=== PATIENT | female | born 1995 | race Caucasian/White ===

== ENCOUNTER 2024-09-22 09:05 | Emergency (ER) | payer OTHER, SELFPAY ==
[2024-09-22 09:07] VITALS: BP 132/86; PULSE 88; RESP 16; TEMP 36.4; O2SAT 95; BMI 29.1
--- NOTE | 2024-09-22 09:19 | PC.NURSE ---
pt states she just got out of a CSS, pt does not have a last dose letter and states her appt is at [facility]. pt here to get suboxone
--- NOTE | 2024-09-22 09:42 | PC.NURSE ---
care team stated that the dosage could be just ordered by the provider or the provider can reach out to bárbara hendrix.
--- NOTE | 2024-09-22 10:05 | ED.GENADULT ---
HPI - General Adult General Chief complaint: General Medical Stated complaint: Needs suboxone Time Seen by Provider: 09/22/24 09:12 Source: patient Mode of arrival: ambulatory Limitations: no limitations History of Present Illness ED Provider: Deepthi Shoemaker NP HPI narrative: Patient is a 29-year-old female with past medical history of opioid use disorder presenting to emergency department requesting Suboxone dosing. She reports that she was recently at [facility], which she was given a prescription for Suboxone 8 mg to take twice daily. She ran out of the medication 2 days ago, and reports that there is issues with her insurance. She is currently staying at [place] [facility]. She has an appointment tomorrow with frederick castanon at 10:30. She is requesting a single dosage here in the emergency department to get her through to the appointment tomorrow. She does not want any prescriptions sent to the pharmacy for dosing later tonight. She denies any recreational drug usage. She offers no physical complaints Related Data Allergies Allergy/AdvReac Type Severity Reaction Status Date / Time ibuprofen Allergy Unknown Verified 09/22/24 09:08 Penicillins Allergy Unknown Verified 09/22/24 09:08 Review of Systems Review of Systems: Yes all other systems are reviewed and are negative PMFSH Past Medical History Attestation statement: The following information was validated with the patient. Source: old records reviewed Social History Social History Advance Directives: No Advance Directives Information Provided: No Do you have a plan to hurt others: No Plan Physical Exam ED Vital Signs: Vital Signs - 24 hr 09/22/24 09:07 Temperature 97.6 F Pulse Rate 88 Respiratory Rate 16 Blood Pressure 132/86 Pulse Oximetry 95 Oxygen Delivery Method Room Air BMI result Body Mass Index 29.1 Appearance: Alert.?Oriented to person, place and time. No acute distress.?Normal affect. Eyes: Pupils equal, round and reactive to light.? ENT: Pharynx normal.?? Neck: Normal inspection.? Neck supple.?? CVS: Heart sounds normal. Normal heart rate and rhythm.? Pulses normal.?? Respiratory: No respiratory distress.? Lung sounds clear to auscultation bilaterally?? Skin: Skin warm and dry.? Normal skin color. Extremities: No lower extremity edema.? Neuro: Moves all extremities spontaneously. Sensation intact bilaterally.Ambulates with normal steady gait. Medical Decision Making Medical Decision Making [facility] Narrative: Patient is a 29-year-old female with past medical history of opioid use disorder presenting to emergency department requesting Suboxone dosage as per HPI. She is well-appearing, nontoxic. Does not appear under the influence of illicit drugs at this time. She denies opioid usage. She does not want a prescription for her Suboxone later tonight. She simply wants a dose here which I feel is reasonable, she will be dosed with Suboxone 8/2 mg film sublingually. No current signs of withdrawal. Stable for discharge Differential Diagnosis Differential Diagnoses: The differential diagnosis associated with the presentation includes (Opioid use disorder, opioid withdrawal) External Record Review External record reviewed: Outpatient record Prescription Management I considered prescription management with: Other (See narrative above) Discharge Plan Discharge Clinical Impression: Opioid use disorder Patient Disposition: Home, Self-Care Instructions: Opioid Use Disorder (ED) Additional Instructions: You received a single dose of Suboxone 8/2 mg sublingual film while in the emergency department today. Please keep your appointment scheduled for tomorrow with [facility] for further treatment Print Language: Faroese
[2024-09-22] MEDS: Buprenorphine/Naloxone 8/2 mg FILM 1 FILM SUBLINGUAL (10:33)
[2024-09-22 10:36] VITALS: BP 128/78; PULSE 82; RESP 16; TEMP 36.8; O2SAT 96
--- NOTE | 2024-09-22 10:36 | PC.NURSE ---
pt medicated per order
== END 2024-09-22 10:37 | disposition home or self-care (01) ==
PROVIDERS: Emergency Provider Emergency Medicine Emergency Medical Services
DX: F11.20 Opioid dependence, uncomplicated (principal)
CPT/HCPCS: 99282; 99283

== ENCOUNTER 2024-09-24 11:18 | Emergency (ER) | payer OTHER, SELFPAY ==
[2024-09-24 11:21] VITALS: BP 123/88; PULSE 76; RESP 20; TEMP 36.3; O2SAT 96; BMI 34.9
--- NOTE | 2024-09-24 11:21 | ED_ITS ---
HPI - General Adult General Chief complaint: General Medical Stated complaint: suboxone withdrawal Time Seen by Provider: 09/24/24 11:31 Source: patient Mode of arrival: ambulatory Limitations: no limitations History of Present Illness ED Provider: Deepthi Shoemaker NP HPI narrative: Patient is a 29-year-old female with past medical history of opioid use disorder presenting to emergency department requesting Suboxone dosing concerned she is withdrawing experiencing sweats and pins and needle sensation. She reports that she was recently at [facility] program in [facility], which she was taking Suboxone 8 mg to take twice daily. She was transferred to [facility] locally. She was seen in the emergency department 09/22/2024 and received a single dose of her Suboxone after having ran out of the medication 2 days prior due to ?insurance issues?. She had an appointment yesterday with frederick cobian, prescription for Suboxone was sent to [facility] pharmacy but due to lack of insurance specific information she has been unable to picker box operator the prescription. Therefore has not been dose since 09/22/2024 in the morning in this ED. Nursing staff have contacted Frederick Cobian and verified that she was not previously dosed very yesterday. Related Data Allergies Allergy/AdvReac Type Severity Reaction Status Date / Time ibuprofen Allergy Unknown Verified 09/24/24 11:23 Penicillins Allergy Unknown Verified 09/24/24 11:23 Review of Systems Review of Systems: Yes all other systems are reviewed and are negative [facility] Past Medical History Attestation statement: The following information was validated with the patient. Source: old records reviewed Social History Social History Advance Directives: No Advance Directives Information Provided: Yes Do you have a plan to hurt others: No Plan Physical Exam ED Vital Signs: Vital Signs - 24 hr 09/24/24 11:21 Temperature 97.4 F Pulse Rate 76 Respiratory Rate 20 Blood Pressure 123/88 Pulse Oximetry 96 Oxygen Delivery Method Room Air BMI result Body Mass Index 34.9 Appearance: Alert.?Oriented to person, place and time. No acute distress.?Normal affect. Eyes: Pupils equal, round and reactive to light.? ENT: Pharynx normal.?? Neck: Normal inspection.? Neck supple.?? CVS: Heart sounds normal. Normal heart rate and rhythm.? Pulses normal.?? Respiratory: No respiratory distress.? Lung sounds clear to auscultation bilaterally?? Abdomen: Soft and non-tender. Normoactive bowel sounds. Skin: Skin warm and dry.? Normal skin color.? Extremities: No lower extremity edema.? Neuro: Moves all extremities spontaneously. Sensation intact bilaterally. No focal neuro deficits. Ambulates with normal steady gait. Course Course Course Narrative: This is a Rapid Medical Examination (RME) performed by Alisa Caban PA-C in [facility]. Full HPI, ROS, assessment and treatment plan per primary provider in the Main ED. 29 yo female here requsting saboxone dose. she was last dosed at [facility] on . She takes 8mg BID. she is typically dosed at [facility]. she states she has a prescription waiting for her at the pharmacy. she has been unable to picker box operator her prescription because they are requesting a BIN number from her in [facility] which she is unable to obtain. reports feeling generally unwell with chills and paresthesias. no nausea. no pain. states she does not know what to do at this point. + well appearing Plan: suboxone dose Reevaluation(s) Reevaluation #1: Nursing staff was able to obtain appropriate information from insurance company contacted patient's pharmacy and provided this information, received word from pharmacy technician inpatient that the claim is pain and patient should have no further difficulty picking up her Suboxone prescription. Time: 12:17 Medical Decision Making Medical Decision Making [facility] Narrative: Patient is a 29-year-old female past medical history of opioid use disorder presenting to emergency department requesting Suboxone dosage as per HPI, she feels as though she is starting to withdrawal she is having intermittent sweats, pins and needle sensation, she denies any recreational drug usage. As per HPI she can not picker box operator her prescription for Suboxone at the pharmacy due to lack of information regarding her health insurance plan. I have contacted the [facility] pharmacy on [address] [facility] personally to determine what information in regards to her insurance is required, I was advised by pharmacy staff that they require a BIN or PCN number in addition to her group ID and member ID for her [facility] insurance. Patient does not have access to more than her group Melly your member ID. Unfortunately she does not have her health insurance card. She asked for assistance from staff at [facility] and they to only have the group and member ID. She did have her appointment at [facility] yesterday, a prescription for her Suboxone was sent to his pharmacy but she was not dosed there. Therefore her last dosing was in the emergency department on 09/22/2024. Differential Diagnosis Differential Diagnoses: The differential diagnosis associated with the presentation includes (Opioid use disorder, opioid withdrawal) External Record Review External record reviewed: Outpatient record Discharge Plan Discharge Clinical Impression: Opioid use disorder Patient Disposition: Home, Self-Care Instructions: Opioid Use Disorder (ED) Additional Instructions: As discussed, our nursing staff here were able to contact your insurance to obtain the appropriate information required by [facility] pharmacy. We then called your [facility] pharmacy on [address] provided this information we spoke with Robi who confirms that the claim is pain in you should have no difficulty speaking up your Suboxone prescription. Referrals: Physician,None [Primary Care Provider] - Print Language: Tuvaluan
--- NOTE | 2024-09-24 12:15 | PC.NURSE ---
spoke with [employer] rx rep Malathi verified pt has active coverage ID: [id number] BIN [id number] PCN: [id number] Grp: [id number]- Spoke with [facility] Pharm[facility] on [address] (Staff:Ricki) [facility] info updated claim is processed and paid. Pt should be ready within the hour.
[2024-09-24] MEDS: Buprenorphine/Naloxone 8/2 mg FILM 1 FILM SUBLINGUAL (12:21)
[2024-09-24 12:36] VITALS: BP 123/88; PULSE 76; RESP 20; TEMP 36.3; O2SAT 96
== END 2024-09-24 12:37 | disposition home or self-care (01) ==
PROVIDERS: Emergency Provider Emergency Medicine
DX: F11.20 Opioid dependence, uncomplicated (principal); F19.10 Other psychoactive substance abuse, uncomplicated; J45.909 Unspecified asthma, uncomplicated; F17.210 Nicotine dependence, cigarettes, uncomplicated
CPT/HCPCS: 99282

== ENCOUNTER 2024-10-11 08:01 | Inpatient (IN) | payer OTHER, SELFPAY ==
[2024-10-11] VITALS (12 sets, daily range): BP systolic 96–130; BP diastolic 46–79; PULSE 71–115; RESP 14–20; TEMP 36–37.9; O2SAT 87–96; BMI 29.6; BMI 35.2
--- NOTE | ~2024-10-11 | XR_ITS ---
EXAMINATION: XR CHEST CLINICAL INFORMATION: Cough, fever, shortness of breath R/O pneumonia COMPARISON: None available. TECHNIQUE: 2 views of the chest were obtained. FINDINGS: The cardiac silhouette is normal. There is mild diffuse bronchial wall thickening. There are no areas of consolidation. There are no pleural effusions or pneumothoraces. The bones and soft tissues are unremarkable for the patient's age. XR/XR chest 2V IMPRESSION: Bronchial wall thickening may be infectious and/or inflammatory in etiology. Electronically signed by: Sveta Olvera MD 10/11/2024 10:10 AM [facility]
--- NOTE | ~2024-10-11 | CT_ITS ---
EXAMINATION: CT ANGIOGRAM CHEST CLINICAL INFORMATION: Shortness of breath. Hypoxia. COMPARISON: None available. TECHNIQUE: Multiple axial images were obtained through the chest after the administration of 65 mL of Omnipaque 350 intravenous contrast. Extensive vascular post-processing including two-dimensional and three-dimensional reformatted images were created and reviewed on an independent workstation. SmartPrep technique. This CT examination was performed using dose optimization techniques as appropriate, variously including the following: *Automated exposure control *Adjustment of mA and/or kV according to patient size (this includes techniques or standardized protocols for targeted exams where dose is matched to indication/reason for exam; i.e. extremities or head) *Use of iterative reconstruction technique DLP: 284 mGy-cm FINDINGS: Limited secondary to inadequate smart prepped technique and patient's breathing motion artifact. No intraluminal filling defects within the main pulmonary artery or its main branches. No aneurysm or dissection, thoracic aorta. There is a subtle pulmonary mosaic pattern. No consolidation, pleural effusion or pneumothorax. No bronchiectasis. No honeycombing. Respiratory where is patent. No lymphadenopathy, mediastinum or pulmonary hilum nor axillary. No pericardial effusion. No gross calcified plaques in the coronary arteries. No acute fracture or listhesis in the axial skeleton. Sternum is intact. The included clavicles and scapula are intact. No gross acute rib fracture.. CT/CT angio chest PE protocol IMPRESSION: No acute pulmonary artery emboli. No aneurysm or dissection, thoracic. Posterior mild interstitial edema versus small airway disease versus small pulmonary artery disease. Fleischner guidelines were followed. Electronically signed by: Dank Garcia MD 10/11/2024 03:26 PM [facility]
[2024-10-11] MEDS: Albuterol Sulfate 5 MG, Albuterol/Iprat 2.5/0.5MG 3 ML 3 ML INHALE (08:24)
--- NOTE | 2024-10-11 08:35 | ED_ITS ---
HPI - URI/Sore Throat General Chief Complaint: Upper Respiratory Symptoms Stated Complaint: SOB 91%RA,COUGH GREEN,DUONEB GIVEN PER EMS Time Seen by Provider: 10/11/24 08:20 Source: patient Limitations: no limitations History of Present Illness ED Provider: Dr. Navid Mann HPI Narrative: 34-year-old female with a history of asthma , psoriasis, opiate use disorder on Suboxone who presents emergency department for evaluation of productive cough, chest pain, shortness of breath, dyspnea on exertion, subjective fever and chills x1 week with symptoms getting worse over the last 24 hours. Patient states that she has been feeling short of breath and has had to use her albuterol inhaler 2 puffs 4 to 6 times a day which is my more than her usual use. She states she was felt hot and cold at home but did not take her temperature. She states she has been having chest pain which is worse with coughing and worse with breathing. She was a cough which is productive of thick, green sputum with no blood in the sputum. Patient states that her symptoms got worse over last 24 hours therefore she came to emergency department for evaluation. Patient occasionally smokes cigarettes but does vape tobacco products. She denies drug use. Related Data Home Medications ?Medication ?Instructions ?Recorded ?Confirmed alprazolam 0.5 mg tablet 0.5 mg BEDTIME 10/11/24 10/11/24 alprazolam 1 mg tablet 1 mg DAILY PRN Anxiety 10/11/24 10/11/24 aripiprazole 15 mg DAILY 10/11/24 10/11/24 buprenorphine 8 mg-naloxone 2 mg 1 film buccal BID 10/11/24 10/11/24 sublingual film (Suboxone) dextroamphetamine-amphetamine 20 20 mg BID 10/11/24 10/11/24 mg tablet gabapentin 800 mg tablet 800 mg PO TID 10/11/24 10/11/24 Allergies Allergy/AdvReac Type Severity Reaction Status Date / Time ibuprofen Allergy Unknown Verified 10/11/24 09:27 Penicillins Allergy Unknown Verified 10/11/24 09:27 Review of Systems 2 Review of Systems: Yes all other systems are reviewed and are negative [facility] Past Medical History [facility] Narrative: Social history: She occasionally smokes cigarettes and does vape tobacco products. She denies alcohol and drug use. Patient is on Suboxone and she states that she was using oxycodone and Vicodin in his not taken opiate in over 7 years. Social History Social History (System 10/11/24 @ 09:27 by Trena London) Advance Directives: No Do you have a plan to hurt others: No Plan Patient : No Physical Exam 2 Vital Signs: Vital Signs: Last Vital Signs Temp 97.3 F 10/11/24 12:46 Pulse 86 10/11/24 15:52 Resp 15 10/11/24 15:52 BP 100/46 L 10/11/24 15:52 Pulse Ox 96 10/11/24 15:52 O2 Del Method Nasal Cannula 10/11/24 15:52 O2 Flow Rate 2 10/11/24 15:52 BMI result Body Mass Index 29.6 Vital signs revealed a low grade temperature of 99.9 degrees F and elevated heart rate of 106 beats per minute. O2 saturation was 91-95% on room air. Exam: General: Awake, alert in no distress Head: Normocephalic, atraumatic EENT: PERRL, Lids normal, sclera normal, conjunctiva normal, nose normal , ears normal, throat without erythema or exudates Neck: Supple, no adenopathy Lung: breath sounds symmetric, diffuse rhonchi and wheezing, no rales. Chest: symmetric movement, nontender Heart: regular rate and rhythm, normal S1, S2 no murmurs or rubs Abdomen: soft, non-tender, nondistended, normal bowel sounds Back: no vertebral tenderness, no CVAT Extremities: no deformities, moves all extremities symmetrically Neuro: Awake, alert, oriented, normal speech, cranial nerves intact, moves all extremities symmetrically Psych: Pleasant, cooperative Medications Administered Discontinued Medications Generic Name Dose Route Start Last Admin Trade Name Madhuri PRN Reason Stop Dose Admin Acetaminophen 975 mg 10/11/24 08:21 10/11/24 08:37 Acetaminophen 325 Mg Tablet PO 10/11/24 08:22 975 mg ONCE ONE Administration Alprazolam 1 mg 10/11/24 14:21 10/11/24 14:29 Alprazolam 0.5 Mg Tablet PO 10/11/24 14:22 1 mg ONCE ONE Administration Buprenorphine/Naloxone 1 film 10/11/24 14:21 10/11/24 14:29 Buprenorphine/Naloxone 8/2 Mg Film SUBLINGUAL 10/11/24 14:22 1 film ONCE ONE Administration Ceftriaxone Sodium 1 gm 10/11/24 13:01 10/11/24 14:30 Ceftriaxone Sodium 1 Gm Vial IVPUSH 10/11/24 13:02 1 gm ONCE ONE Administration Albuterol Sulfate 5 mg/ 0 mg 10/11/24 08:18 10/11/24 08:24 Albuterol/Ipratropium 3 ml INHALE 10/11/24 08:19 7.5 each ONCE ONE Administration Sodium Chloride 1,000 mls @ 999 mls/hr 10/11/24 10:30 10/11/24 12:43 Ns IV 10/11/24 11:30 Infused .Q1H1M VEE Infusion Azithromycin 500 mg/ Sodium 250 mls @ 125 mls/hr 10/11/24 13:01 10/11/24 14:33 Chloride IV 10/11/24 15:00 125 mls/hr ONCE ONE Administration Iohexol 100 ml 10/11/24 14:16 10/11/24 14:16 Iohexol 350 Mg/Ml 100 Ml Infus..Btl IV 10/11/24 14:17 65 ml ONCE ONE Administration Methylprednisolone Sodium Succinate 125 mg 10/11/24 08:44 10/11/24 09:01 Methylprednisolone Sod Succ 125 Mg/2 Ml Vial IVPUSH 10/11/24 08:45 125 mg ONCE ONE Administration Nicotine Polacrilex 2 mg 10/11/24 14:22 10/11/24 14:29 Nicotine Polacrilex 2 Mg Gum BUCCAL 10/11/24 14:23 2 mg ONCE ONE Administration Medical Decision Making Medical Decision Making MDM Narrative: 34-year-old female with a history of asthma, psoriasis, opiate use disorder on Suboxone who presents emergency department for evaluation of productive cough, chest pain, shortness of breath, dyspnea on exertion, subjective fever and chills x1 week with symptoms getting worse over the last 24 hours. Vital signs revealed a low-grade fever of 99.9 degrees F orally, elevated heart rate and O2 saturation between 91 and 95% on room air. Patient is lung exam did reveal diffuse wheezing and rhonchi with no rales. 08:44 Differential diagnosis: ?Includes but is not limited to asthma exacerbation, bronchitis, pneumonia, COVID-19, influenza, RSV, anemia, electrolyte abnormalities Following evaluation was ordered: CBC, CMP, lactic acid, quantitative beta-hCG, VBG, COVID-19, RSV, influenza, chest x-ray two view, bronchodilator protocol Patient was initially treated with the following: Albuterol 7.5 mg IV, Solu- Medrol 125 mg IV and Tylenol 975 mg orally Course: 15:57 My independent interpretation patient's laboratory evaluation: WBC was elevated 16,900 with 91.7% neutrophils and 4.9% lymphocytes. VBG revealed a normal pH of 7.40 and a normal pCO2 of 42. Glucose elevated 128. Quantitative beta-hCG below detectable limits. Urinalysis was negative. Urine tox screen was positive for buprenorphine, amphetamines and benzodiazepines-these medications that she is prescribed. COVID-19, RSV and influenza were negative. The patient had hypoxia with O2 saturations in the 87% range and was placed on oxygen Chest x-ray did not reveal any focal infiltrates but did reveal bronchial thickening. Given her hypoxia and this chest x-ray findings he was concerned that she might have a pulmonary embolism but the CT pulmonary angiogram did not reveal any large PEs which is reassuring. The radiologist did note the following ?Posterior mild interstitial edema versus small airway disease versus pulmonary artery disease ?. Given her hypoxia, bronchitis and asthma exacerbation, the patient will need to be admitted for further treatment. I did discuss the patient's presentation over tiger text with the covering hospitalist, nurse practitioner Kacey Ramirez. Admission/Observation Consideration of admission/observation: Escalation of care including admission/observation considered (Yes) Consult Healthcare Provider Management of the patient was discussed with: Hospitalist Lab Data [facility] Lab Attestation statement: I reviewed the patient's lab results. 10/11/24 10:56 10/11/24 10:56 Labs: Lab Results 10/11/24 10/11/24 10/11/24 Range/Units 10:56 11:02 12:49 WBC 16.9 H (4.8-10.8) X10*3/uL RBC 4.27 (4.20-5.50) X10*6/uL Hgb 12.6 (12.0-16.0) g/dl Hct 37.5 (37.0-47.0) % MCV 87.8 (80.0-98.0) fL MCH 29.5 (27.0-33.0) pg MCHC 33.6 (31.0-35.0) g/dl RDW 12.2 (11.0-16.0) % Plt Count 311 (160-400) X10*3/uL MPV 8.9 L (9.4-12.3) fL Immature Gran % (Auto) 0.5 H (0.0-0.4) % Neut % (Auto) 91.7 H (45-73) % Lymph % (Auto) 4.9 L (20-40) % Lares % (Auto) 2.7 (2-11) % Eos % (Auto) 0.1 (0-4) % Baso % (Auto) 0.1 (0-2) % Lymph # (Auto) 0.8 L (1.2-4.9) X10*3/uL Lares # (Auto) 0.5 (0.1-1.2) X10*3/uL Eos # (Auto) 0.0 (0.0-0.4) X10*3/uL Baso # (Auto) 0.0 (0.0-0.2) X10*3/uL Abs Immat Gran (auto) 0.09 H (0.00-0.03) X10*3/uL Absolute Neuts (auto) 15.5 H (2.0-8.3) x10*3/uL Absolute Nucleated RBC 0.000 (0.0-0.012) X10*3/uL Nucleated RBC % (auto) 0.0 (0.0-0.2) /100WBC Smear Tech's Comments VERIFIED VBG pH 7.40 (7.32-7.43) VBG pCO2 42 mmHg VBG pO2 134 mmHg VBG HCO3 26 (22-26) mmol/L VBG O2 Saturation 100.0 % VBG Base Excess 1.9 mmol/L Sodium 137 (135-145) mmol/L Potassium 3.6 (3.3-5.1) mmol/L Chloride 105 (96-108) mmol/L Carbon Dioxide 27 (22-29) mmol/L Anion Gap 9 L (12-20) BUN 7 L (9-16) mg/dL Creatinine 0.73 (0.5-1.4) mg/dL Estim Creat Clear Calc 120.4 Estimated GFR > 60 Random Glucose 128 H (60-115) mg/dL Lactic Acid 0.8 (0.5-2.0) mmol/L Calcium 8.8 (8.4-10.2) mg/dL Total Bilirubin 0.3 (0.0-1.0) mg/dL AST 16 (5-31) U/L ALT 19 (0-31) U/L Alkaline Phosphatase 51 (39-117) U/L Total Protein 7.4 (6.5-8.0) g/dL Albumin 4.0 (3.5-5.0) g/dL Beta HCG, Quant < 2 mIU/mL Urine Color Yellow Urine Appearance Clear Urine pH 8.0 (5.0-9.0) Ur Specific Kamrar 1.015 (1.005-1.025) Urine Protein Negative (Neg-Trace) mg/dL Urine Glucose (UA) Negative (Negative) mg/dL Urine Ketones Negative (Negative) mg/dL Urine Blood Negative (Negative) Urine Nitrite Negative (Negative) Ur Leukocyte Esterase Negative (Negative) Urine Opiates Screen Not Detected (Not Detect) Ur Buprenorphine Scrn Positive H (Not Detect) ng/mL Ur Oxycodone Screen Not Detected (Not Detect) ng/mL Urine Methadone Screen Not Detected (Not Detect) ng/mL Urine Fentanyl Screen Not Detected (Not Detect) Ur Barbiturates Screen Not Detected (Not Detect) Ur Phencyclidine Scrn Not Detected (Not Detect) Ur Amphetamines Screen POSITIVE H (Not Detect) U Benzodiazepines Scrn POSITIVE H (Not Detect) Urine Cocaine Screen Not Detected (Not Detect) U Marijuana (THC) Screen Not Detected (Not Detect) Influenza Type A (PCR) NEGATIVE (Negative) Influenza Type B (PCR) NEGATIVE (Negative) RSV RNA Qual (PCR) NEGATIVE (Negative) SARS-CoV-2 RNA (RT-PCR) NEGATIVE (Negative) Independent Interpretation I performed an independent interpretation of an: Plain X-Ray Radiology Impression Discussion of test interpretation with radiology: I have reviewed the radiologist's reading. Radiologist Impression: XR chest 2V IMPRESSION: Bronchial wall thickening may be infectious and/or inflammatory in etiology. Electronically signed by: Sveta Olvera MD 10/11/2024 10:[address] angio chest PE protocol IMPRESSION: No acute pulmonary artery emboli. No aneurysm or dissection, thoracic. Posterior mild interstitial edema versus small airway disease versus small pulmonary artery disease. Fleischner guidelines were followed. Electronically signed by: Dank Garcia MD 10/11/2024 03:26 PM [facility] Dictated By: Dank Coleman MD Critical Care Time Critical Care Time Critical Care Time: Yes Total Critical Care Time: 45 Attestation: Critical Care: The patient was critically ill with a high probability of imminent or life threatening deterioration. I spent greater than 30 minutes of discontinuous time evaluating the patient,delivering critical care at the bedside, discussing and evaluating pertinent data with consultants. Critical care time does not include time spent performing separately billable procedures or teaching. Total time spent performing critical care was 45 minutes. Discharge Plan Discharge Patient Disposition: Admitted As Inpatient Prescriptions: No Action dextroamphetamine-amphetamine 20 mg Tablet 20 mg BID buprenorphine-naloxone [Suboxone] 8-2 mg Film 1 film BUCCAL BID gabapentin 800 mg Tablet 800 mg PO TID alprazolam 1 mg Tablet 1 mg DAILY PRN (Reason: Anxiety) alprazolam 0.5 mg Tablet 0.5 mg BEDTIME aripiprazole 15 mg tablet 15 mg DAILY Print Language: French
[2024-10-11] MEDS: Acetaminophen 325 MG TABLET 975 MG PO (08:37)
[2024-10-11] MEDS: methylPREDNISolone Sod Succ 125 MG/2 ML VIAL IVPUSH (09:01)
--- NOTE | 2024-10-11 10:24 | PC.NURSE ---
Patient remain febrile, allergic to ibuprofen, warm and clammy to touch
[2024-10-11] MEDS: 0.9 % Sodium Chloride 1,000 ML 999 ML IV (10:30)
[2024-10-11 11:09] LABS: Basophils Percent Auto 0.1 % (0-2); Eosinophils Percent Auto 0.1 % (0-4); Hematocrit 37.5 % (37.0-47.0); Hemoglobin 12.6 g/dl (12.0-16.0); Imm Gran Abs Auto 0.09 X10*3/uL (0.00-0.03); Imm Gran Pct Auto 0.5 % (0.0-0.4); Lymphocytes Absolute Auto 0.8 X10*3/uL (1.2-4.9); Lymphocytes Percent Auto 4.9 % (20-40); MANUAL DIFF FLAG SCAN; Mean Corpuscular HGB Conc 33.6 g/dl (31.0-35.0); Mean Corpuscular Hemoglobin 29.5 pg (27.0-33.0); Mean Corpuscular Volume 87.8 fL (80.0-98.0); Mean Platelet Volume 8.9 fL (9.4-12.3); Monocytes Absolute Auto 0.5 X10*3/uL (0.1-1.2); Monocytes Percent Auto 2.7 % (2-11); Neutrophils Absolute Auto 15.5 x10*3/uL (2.0-8.3); Neutrophils Percent Auto 91.7 % (45-73); Platelet Count 311 X10*3/uL (160-400); Red Blood Count 4.27 X10*6/uL (4.20-5.50); Red Cell Distribution Width 12.2 % (11.0-16.0); SCAN SMEAR FLAG 1; White Blood Count 16.9 X10*3/uL (4.8-10.8)
[2024-10-11 11:21] LABS: VBG Base Excess 1.9 mmol/L; VBG HCO3 26 mmol/L (22-26); VBG pCO2 42 mmHg; VBG pO2 134 mmHg
[2024-10-11 11:23] LABS: Lactic Acid 0.8 mmol/L (0.5-2.0)
[2024-10-11 11:26] LABS: SLIDE REVIEW VERIFIED
[2024-10-11 11:27] LABS: Venous Blood Gas Refer to POC result
[2024-10-11 11:30] LABS: Alanine Aminotransferase 19 U/L (0-31); Alkaline Phosphatase 51 U/L (39-117); Anion Gap 9 (12-20); Aspartate Amino Transferase 16 U/L (5-31); Bilirubin Total 0.3 mg/dL (0.0-1.0); Blood Urea Nitrogen 7 mg/dL (9-16); Calcium 8.8 mg/dL (8.4-10.2); Carbon Dioxide 27 mmol/L (22-29); Chloride 105 mmol/L (96-108); Creatinine Clr Calc Pharmacy 120.4; Estimated Glomerular Filt Rate > 60; Glucose Random 128 mg/dL (60-115); Potassium 3.6 mmol/L (3.3-5.1); Sodium 137 mmol/L (135-145); Total Protein 7.4 g/dL (6.5-8.0)
[2024-10-11 11:33] LABS: HCG Quantitative < 2 mIU/mL
[2024-10-11 11:46] LABS: Influenza A PCR NEGATIVE (Negative); Influenza B PCR NEGATIVE (Negative); Resp Syncy Virus RNA Qual PCR NEGATIVE (Negative); SARS COV2 PCR INHOUSE NEGATIVE (Negative)
--- NOTE | 2024-10-11 12:42 | PC.NURSE ---
Patient up ambulting to ED with steady gait on 2L o2, toelrating well
[2024-10-11 12:56] LABS: Appearance Urine Clear; Color Urine Yellow; Glucose Urine UA Negative (Negative); Leukocyte Esterase Urine Negative (Negative); Nitrite Urine Negative (Negative); Specific Gravity - Urine 1.015 (1.005-1.025); Urine Blood Negative (Negative); Urine Ketones Negative (Negative); Urine Protein Negative (Neg-Trace)
[2024-10-11 13:07] LABS: Amphetamine Screen Urine POSITIVE (Not Detect); Barbiturates, Urine Not Detected (Not Detect); Benzodiazepines Screen Urine POSITIVE (Not Detect); Buprenorphine Scr Positive (Not Detect); Cannabinoid Screen Urine Not Detected (Not Detect); Cocaine Screen Urine Not Detected (Not Detect); Fentanyl, urine Not Detected (Not Detect); Methadone Screen, Urine Not Detected (Not Detect); Opiate Screen Urine Not Detected (Not Detect); Oxycodone Screen Urine Not Detected (Not Detect); Phencyclidine Screen Urine Not Detected (Not Detect)
--- NOTE | 2024-10-11 13:50 | PC.NURSE ---
Patient in CT scan
[2024-10-11] MEDS: iohexoL 350 MG/ML 100 ML INFUS..BTL IV (14:16)
[2024-10-11] MEDS: Buprenorphine/Naloxone 8/2 mg FILM 1 FILM SUBLINGUAL (14:29)
[2024-10-11] MEDS: ALPRAZolam 0.5 MG TABLET 1 MG PO ×2 (14:29→21:23)
[2024-10-11] MEDS: Nicotine Polacrilex 2 MG GUM BUCCAL ×2 (14:29→21:24)
[2024-10-11] MEDS: cefTRIAXone sodium 1 GM VIAL IVPUSH (14:30)
[2024-10-11] MEDS: Azithromycin 500 MG in 0.9 % Sodium Chloride 250 ML 125 MG IV (14:33)
--- NOTE | 2024-10-11 15:55 | PC.NURSE ---
Pt noted to desat on RA while sleeping to 87%, placed on 2L NC and quickly improves to >95%
--- NOTE | 2024-10-11 17:06 | P.HPHOSP_ITS ---
History of Present Illness Date of Service: 10/11/24 Chief Complaint: Wheezing 29-year-old woman with a history of asthma, psoriasis presenting to the ER with complaints of productive cough, shortness of breath, dyspnea on exertion, subjective fever and chills for a week. She lives in a alf and reported the multiple sick contacts. She stated that she did not have any of her albuterol inhaler to use. She reported midsternal chest pain worsening with cough and shortness of breath she has been having thick green sputum. She smokes about 5 cigarettes a day. He was noted to be hypoxic with oxygen saturation of 87% . She was placed on 2 L nasal cannula with improvement upper oxygen saturation. White blood cell count noted to be elevated. Started not showing consolidation. Treated for bronchitis and asthma exacerbation in the ER with Rocephin, azithromycin, albuterol and Solu-Medrol. Patient will be admitted for further management and treatment of acute asthma exacerbation secondary to bronchitis Review of Systems 2 Review of Systems: Denies any recent fever chills or decrease in appetite respiratory see HPI cardiovascular denied chest pain gastrointestinal denies any dysphagia abdominal pain nausea vomiting or diarrhea genitourinary denies any dysuria frequency or hematuria musculoskeletal denies any joint pain or swelling neuropsych denies any weakness or seizures all other systems reviewed are negative [facility] Medical History (Updated 10/11/24 @ 17:10 by Kacey Ramirez NP) Anxiety Substance abuse Asthma Social History (Updated 10/11/24 @ 17:58 by Kacey Ramirez NP) Cigarettes Per Day: 5 Meds Allergies Allergy/AdvReac Type Severity Reaction Status Date / Time ibuprofen Allergy Unknown Verified 10/11/24 09:27 Penicillins Allergy Unknown Verified 10/11/24 09:27 Active Medications: Current Medications Acetaminophen (Acetaminophen 325 Mg Tablet) 650 mg PO Q6H PRN PRN Reason: Pain, Mild (Pain Scale 1-3), fever or headache Alprazolam (Alprazolam 0.5 Mg Tablet) 1 mg PO DAILY PRN PRN Reason: Anxiety Amphetamine/Dextroamphetamine (Amphetamine Mixed Salts 20 Mg Tablet) 20 mg PO BID VEE Buprenorphine/Naloxone (Buprenorphine/Naloxone 8/2 Mg Film) 1 film BUCCAL BID VEE Calcium Carbonate (Calcium Carbonate 750 Mg Tab.Chew) 750 mg PO Q4H PRN PRN Reason: Heartburn Ceftriaxone Sodium (Ceftriaxone Sodium 1 Gm Vial) 1 gm IVPUSH Q24H [facility] Gabapentin (Gabapentin 400 Mg Capsule) 800 mg PO TID [facility] Guaifenesin (Guaifenesin La 600 Mg Tab.Er.12h) 600 mg PO BID PRN PRN Reason: Cough Heparin Sodium (Porcine) (Heparin Sodium,Porcine 5,000 Unit/Ml Vial) 5,000 unit SUBCUT Q12H [facility] Azithromycin 500 mg/ Sodium (Chloride) 250 mls @ 125 mls/hr IV Q24H [facility] Magnesium Hydroxide (Milk Of Magnesia 30 Ml Oral.Susp) 30 ml PO DAILY PRN PRN Reason: Constipation Melatonin (Melatonin 3 Mg Tablet) 6 mg PO BEDTIME PRN PRN Reason: Insomnia Non-Formulary Medication (Aripiprazole) 15 mg PO DAILY [facility] Ondansetron HCl (Ondansetron Hcl 4 Mg/2 Ml Vial) 4 mg IVPUSH Q8H PRN PRN Reason: Nausea and Vomiting Sodium Chloride (0.9 % Sodium Chloride Flush 3 Ml Syringe) 3 ml IVFLUSH QSHIFT [facility] Home Medications ?Medication ?Instructions ?Recorded ?Confirmed ?Last Taken ?Type alprazolam 0.5 mg tablet 0.5 mg BEDTIME 10/11/24 10/11/24 Unknown History alprazolam 1 mg tablet 1 mg DAILY PRN Anxiety 10/11/24 10/11/24 Unknown History aripiprazole 15 mg DAILY 10/11/24 10/11/24 Unknown History buprenorphine 8 mg-naloxone 2 mg 1 film buccal BID 10/11/24 10/11/24 Unknown History sublingual film (Suboxone) dextroamphetamine-amphetamine 20 20 mg BID 10/11/24 10/11/24 Unknown History mg tablet gabapentin 800 mg tablet 800 mg PO TID 10/11/24 10/11/24 Unknown History Physical Exam 2 Vital Signs and Narrative: Vital Signs: Last Vital Signs Temp 97.3 F 10/11/24 12:46 Pulse 86 10/11/24 15:52 Resp 15 10/11/24 15:52 BP 100/46 L 10/11/24 15:52 Pulse Ox 96 10/11/24 15:52 O2 Del Method Nasal Cannula 10/11/24 15:52 O2 Flow Rate 2 10/11/24 15:52 BMI result Body Mass Index 29.6 Appearing in no acute distress head is normocephalic atraumatic eyes pupils are PERRLA sclera is anicteric mouth throat mucous membranes are intact and moist neck is supple no lymphadenopathy, no JVD noted lung sounds expiratory wheezing heart regular rate rhythm, clear S1, S2 positive bowel sounds, abdomen is soft, nontender neuro patient is alert x3, no focal deficits Psoriatic plaques to hands and arms Results Labs 10/11/24 10:56 10/11/24 10:56 Labs: Laboratory Results - last 24 hr 10/11/24 10/11/24 10/11/24 10:56 11:02 12:49 MCV 87.8 MCH 29.5 MCHC 33.6 RDW 12.2 Plt Count 311 MPV 8.9 L Immature Gran % (Auto) 0.5 H Neut % (Auto) 91.7 H Lymph % (Auto) 4.9 L [place] % (Auto) 2.7 Eos % (Auto) 0.1 Baso % (Auto) 0.1 Lymph # (Auto) 0.8 L [place] # (Auto) 0.5 Eos # (Auto) 0.0 Baso # (Auto) 0.0 Abs Immat Gran (auto) 0.09 H Absolute Neuts (auto) 15.5 H Absolute Nucleated RBC 0.000 Nucleated RBC % (auto) 0.0 Smear Tech's Comments VERIFIED VBG pH 7.40 VBG pCO2 42 VBG pO2 134 VBG HCO3 26 VBG O2 Saturation 100.0 VBG Base Excess 1.9 Anion Gap 9 L Estim Creat Clear Calc 120.4 Estimated GFR > 60 Random Glucose 128 H Lactic Acid 0.8 Calcium 8.8 Total Bilirubin 0.3 AST 16 ALT 19 Alkaline Phosphatase 51 Total Protein 7.4 Albumin 4.0 Beta HCG, Quant < 2 Urine Color Yellow Urine Appearance Clear Urine pH 8.0 Ur Specific [place] 1.015 Urine Protein Negative Urine Glucose (UA) Negative Urine Ketones Negative Urine Blood Negative Urine Nitrite Negative Ur Leukocyte Esterase Negative Urine Opiates Screen Not Detected Ur Buprenorphine Scrn Positive H Ur Oxycodone Screen Not Detected Urine Methadone Screen Not Detected Urine Fentanyl Screen Not Detected Ur Barbiturates Screen Not Detected Ur Phencyclidine Scrn Not Detected Ur Amphetamines Screen POSITIVE H U Benzodiazepines Scrn POSITIVE H Urine Cocaine Screen Not Detected U Marijuana (THC) Screen Not Detected Influenza Type A (PCR) NEGATIVE Influenza Type B (PCR) NEGATIVE RSV RNA Qual (PCR) NEGATIVE SARS-CoV-2 RNA (RT-PCR) NEGATIVE Imaging Radiologist's Impressions: Impressions Chest X-Ray 10/11/24 08:36 IMPRESSION: Bronchial wall thickening may be infectious and/or inflammatory in etiology. Electronically signed by: Sveta Olvera MD 10/11/2024 10:10 AM EST RP Chest CTA 10/11/24 13:47 IMPRESSION: No acute pulmonary artery emboli. No aneurysm or dissection, thoracic. Posterior mild interstitial edema versus small airway disease versus small pulmonary artery disease. Fleischner guidelines were followed. Electronically signed by: Dank Gacria MD 10/11/2024 03:26 PM EST RP Assessment and Plan (1) Asthma exacerbation: Status: Acute Plan 29-year-old woman admitted with bronchitis and asthma exacerbation Bronchitis and asthma exacerbation Solu-Medrol Scheduled DuoNebs Mucinex for cough Rocephin and azithromycin for bronchitis Supplemental oxygen to keep oxygen saturation greater than 92% Substance abuse Continue Suboxone Anxiety Continue home medications DVT prophylaxis with heparin Full code Quality Stroke Does the patient have a stroke diagnosis?: No VTE Prior VTE?: No VTE Risk Level:: Medical - moderate - high VTE Device Contraindication: Treatment Not Indicated VTE Drug Contraindication: N/A - Med Ordered
--- NOTE | 2024-10-11 18:22 | PHA.MEDREC ---
Addendum entered by Ady Hidalgo RPh 10/11/24 18:40: Med rec was reviewed by [facility]. Original Note: Pharmacy Consult ? Medication Reconciliation Pharmacy has reviewed the medication reconciliation. done by nursing. Spoke to patient to confirm med list. Patient was able to confirm her medications, however she kept falling asleep. Patient states she is on Lexapro and Nicotine Gum, but couldn't give the dosing. Saw that patient is from a [facility] and found a list in her room. There where some medications that were not on med rec that I added Mirtazapine 45 mg, Lexapro 10 mg, Melatonin 10 mg, Acetaminophine 1,000 mg, Calcium Antacid 500 mg, Nicotine 4 mg Gum, Nicotine 14 mg patch.
[2024-10-11] MEDS: Albuterol/Iprat 2.5/0.5MG 3 ML AMPUL.NEB INHALE (19:41)
[2024-10-11] MEDS: Gabapentin 400 MG CAPSULE 800 MG PO (21:23)
[2024-10-11] MEDS: Buprenorphine/Naloxone 8/2 mg FILM 1 FILM BUCCAL (21:24)
[2024-10-11] MEDS: 0.9 % Sodium Chloride Flush 3 ML SYRINGE IVFLUSH (21:26)
--- NOTE | 2024-10-12 06:25 | PC.NURSE ---
pt refused lab work this morning.
[2024-10-12 07:58] LABS: Hematocrit 37.1 % (37.0-47.0); Mean Corpuscular HGB Conc 32.3 g/dl (31.0-35.0); Mean Corpuscular Hemoglobin 28.8 pg (27.0-33.0); Mean Corpuscular Volume 89.2 fL (80.0-98.0); Mean Platelet Volume 9.4 fL (9.4-12.3); Platelet Count 329 X10*3/uL (160-400); Red Blood Count 4.16 X10*6/uL (4.20-5.50); Red Cell Distribution Width 12.2 % (11.0-16.0); White Blood Count 14.8 X10*3/uL (4.8-10.8)
[2024-10-12 07:59] LABS: Anion Gap 14 (12-20); Blood Urea Nitrogen 10 mg/dL (9-16); Carbon Dioxide 25 mmol/L (22-29); Chloride 104 mmol/L (96-108); Creatinine Clr Calc Pharmacy 147.6; Estimated Glomerular Filt Rate > 60; Glucose Random 106 mg/dL (60-115); Potassium 4.2 mmol/L (3.3-5.1); Sodium 139 mmol/L (135-145)
--- NOTE | 2024-10-12 08:16 | P.DS_ITS ---
DS: Providers Provider Date of Service: 10/12/24 Date of admission: 10/11/24 17:02 Date of discharge: 10/12/24 Primary care physician: Sepideh Physician DS: Diagnosis Discharge Diagnosis (1) Asthma exacerbation: Status: Acute DS: Summary Hospital Course Hospital Course: History and physical as per admitting provider. 29-year-old woman with a history of asthma, psoriasis presenting to the ER with complaints of productive cough, shortness of breath, dyspnea on exertion, subjective fever and chills for a week. She lives in a intermediate and reported the multiple sick contacts. She stated that she did not have any of her albuterol inhaler to use. She reported midsternal chest pain worsening with cough and shortness of breath she has been having thick green sputum. She smokes about 5 cigarettes a day. He was noted to be hypoxic with oxygen saturation of 87% . She was placed on 2 L nasal cannula with improvement upper oxygen saturation. White blood cell count noted to be elevated. Started not showing consolidation. Treated for bronchitis and asthma exacerbation in the ER with Rocephin, azithromycin, albuterol and Solu- Medrol. Patient will be admitted for further management and treatment of acute asthma exacerbation secondary to bronchitis 21-year-old woman treated for acute hypoxic respiratory failure secondary to asthma exacerbation bronchitis. Patient treated with IV Rocephin and azithromycin, Solu-Medrol and scheduled DuoNeb treatments. Patient is off oxygen and not hypoxic. Lung sounds are clear. Plan will be for patient to be discharged and complete course of antibiotics and prednisone. New albuterol inhaler will be sent to her pharmacy. Substance abuse. Continue Suboxone Anxiety. Continue home medications Time Attestation Discharge Coordination Time (in mins): 35 Quality: Safe Use of Opioids Does Pt have an Active Cancer Diagnosis on the Problem List?: No Quality: Stroke Does the patient have a stroke diagnosis?: No Physical Exam Vital Signs: Vital Signs: Last Vital Signs Temp 96.8 F 10/11/24 23:59 Pulse 71 10/11/24 23:59 Resp 18 10/11/24 23:59 BP 104/57 L 10/11/24 23:59 Pulse Ox 94 10/11/24 23:59 O2 Del Method Nasal Cannula 10/11/24 23:59 O2 Flow Rate 2 10/11/24 23:59 BMI result Body Mass Index 35.2 Appearing in no acute distress head is normocephalic atraumatic eyes pupils are PERRLA sclera is anicteric mouth throat mucous membranes are intact and moist neck is supple no lymphadenopathy, no JVD noted lung sounds are clear to auscultation heart regular rate rhythm, clear S1, S2 positive bowel sounds, abdomen is soft, nontender neuro patient is alert x3, no focal deficits DS: Data Data Completed and Pending Labs on day of discharge: Laboratory Results - last 24 hr 10/11/24 10/11/24 10/11/24 10:56 11:02 12:49 WBC 16.9 H RBC 4.27 Hgb 12.6 Hct 37.5 MCV 87.8 MCH 29.5 MCHC 33.6 RDW 12.2 Plt Count 311 MPV 8.9 L Immature Gran % (Auto) 0.5 H Neut % (Auto) 91.7 H Lymph % (Auto) 4.9 L [place] % (Auto) 2.7 Eos % (Auto) 0.1 Baso % (Auto) 0.1 Lymph # (Auto) 0.8 L [place] # (Auto) 0.5 Eos # (Auto) 0.0 Baso # (Auto) 0.0 Abs Immat Gran (auto) 0.09 H Absolute Neuts (auto) 15.5 H Absolute Nucleated RBC 0.000 Nucleated RBC % (auto) 0.0 Smear Tech's Comments VERIFIED VBG pH 7.40 VBG pCO2 42 VBG pO2 134 VBG HCO3 26 VBG O2 Saturation 100.0 VBG Base Excess 1.9 Sodium 137 Potassium 3.6 Chloride 105 Carbon Dioxide 27 Anion Gap 9 L BUN 7 L Creatinine 0.73 Estim Creat Clear Calc 120.4 Estimated GFR > 60 Random Glucose 128 H Lactic Acid 0.8 Calcium 8.8 Total Bilirubin 0.3 AST 16 ALT 19 Alkaline Phosphatase 51 Total Protein 7.4 Albumin 4.0 Beta HCG, Quant < 2 Urine Color Yellow Urine Appearance Clear Urine pH 8.0 Ur Specific [place] 1.015 Urine Protein Negative Urine Glucose (UA) Negative Urine Ketones Negative Urine Blood Negative Urine Nitrite Negative Ur Leukocyte Esterase Negative Urine Opiates Screen Not Detected Ur Buprenorphine Scrn Positive H Ur Oxycodone Screen Not Detected Urine Methadone Screen Not Detected Urine Fentanyl Screen Not Detected Ur Barbiturates Screen Not Detected Ur Phencyclidine Scrn Not Detected Ur Amphetamines Screen POSITIVE H U Benzodiazepines Scrn POSITIVE H Urine Cocaine Screen Not Detected U Marijuana (THC) Screen Not Detected Influenza Type A (PCR) NEGATIVE Influenza Type B (PCR) NEGATIVE RSV RNA Qual (PCR) NEGATIVE SARS-CoV-2 RNA (RT-PCR) NEGATIVE 10/12/24 07:28 WBC 14.8 H RBC 4.16 L Hgb 12.0 Hct 37.1 MCV 89.2 MCH 28.8 MCHC 32.3 RDW 12.2 Plt Count 329 MPV 9.4 Immature Gran % (Auto) Neut % (Auto) Lymph % (Auto) [place] % (Auto) Eos % (Auto) Baso % (Auto) Lymph # (Auto) [place] # (Auto) Eos # (Auto) Baso # (Auto) Abs Immat Gran (auto) Absolute Neuts (auto) Absolute Nucleated RBC 0.000 Nucleated RBC % (auto) 0.0 Smear Tech's Comments VBG pH VBG pCO2 VBG pO2 VBG HCO3 VBG O2 Saturation VBG Base Excess Sodium 139 Potassium 4.2 Chloride 104 Carbon Dioxide 25 Anion Gap 14 BUN 10 Creatinine 0.65 Estim Creat Clear Calc 147.6 Estimated GFR > 60 Random Glucose 106 Lactic Acid Calcium 9.0 Total Bilirubin AST ALT Alkaline Phosphatase Total Protein Albumin Beta HCG, Quant Urine Color Urine Appearance Urine pH Ur Specific [place] Urine Protein Urine Glucose (UA) Urine Ketones Urine Blood Urine Nitrite Ur Leukocyte Esterase Urine Opiates Screen Ur Buprenorphine Scrn Ur Oxycodone Screen Urine Methadone Screen Urine Fentanyl Screen Ur Barbiturates Screen Ur Phencyclidine Scrn Ur Amphetamines Screen U Benzodiazepines Scrn Urine Cocaine Screen U Marijuana (THC) Screen Influenza Type A (PCR) Influenza Type B (PCR) RSV RNA Qual (PCR) SARS-CoV-2 RNA (RT-PCR) Discharge Plan Discharge Anticipated Discharge Date/Time: 10/12/24 08:11 Patient Disposition: Home, Self-Care Discharge Diagnosis: Asthma exacerbation Bronchitis Acute hypoxic respiratory failure Discharge Medications: New prednisone 10 mg tablet 40 mg PO DIRECTED Qty: 16 0RF Rx Instructions: see taper instructions cefuroxime axetil 500 mg tablet 500 mg PO BID Qty: 8 0RF doxycycline hyclate 100 mg tablet 100 mg PO BID Qty: 8 0RF albuterol sulfate 90 mcg/actuation HFA aerosol inhaler 1 inh inhalation QID PRN (Reason: shortness of breath or wheezing) Qty: 6.7 0RF Continued dextroamphetamine-amphetamine 20 mg Tablet 20 mg BID buprenorphine-naloxone [Suboxone] 8-2 mg Film 1 film BUCCAL BID gabapentin 800 mg Tablet 800 mg PO TID alprazolam 1 mg Tablet 1 mg DAILY PRN (Reason: Anxiety) alprazolam 0.5 mg Tablet 0.5 mg BEDTIME aripiprazole 15 mg tablet 15 mg DAILY nicotine 14 mg/24 hr Patch 24 Hour 1 patch TRANSDERMAL DAILY acetaminophen 500 mg Tablet 1,000 mg PO Q6H MDD 6 tabs /24h PRN (Reason: Fever Or Pain) nicotine (polacrilex) [Nicorette] 4 mg Gum 4 mg BUCCAL Q2H PRN (Reason: Smoking Cessation) mirtazapine 45 mg Tablet 45 mg PO BEDTIME calcium carbonate 500 mg calcium (1,250 mg) Tablet,Chewable 1,000 - 2,000 mg PO DAILY PRN (Reason: Acid Reflux) escitalopram oxalate [Lexapro] 10 mg Tablet 10 mg PO DAILY melatonin 5 mg Tablet 10 mg PO BEDTIME Discharge Orders: Discharge Order (Routine); Ordered 10/12/24 Ordered By: Kacey Ramirez Diet: Advance to usual diet Activity on Discharge: As tolerated Stand Alone Forms: Patient Portal Discharge page Print Language: Yoruba Care Plan Goals: Continue course of antibiotics and prednisone Last Suboxone dose 09:00 10/12/2024 Health Concerns: Asthma exacerbation Bronchitis Acute hypoxic respiratory failure Plan of Treatment: Follow-up with primary care provider as needed Take all medications as prescribed Assessment: See discharge summary Discharge Date/Time: 10/12/24 10:06
[2024-10-12] MEDS: 0.9 % Sodium Chloride Flush 3 ML SYRINGE IVFLUSH (08:38)
[2024-10-12] MEDS: Gabapentin 400 MG CAPSULE 800 MG PO (08:38)
[2024-10-12] MEDS: Amphetamine Mixed Salts 20 MG TABLET PO (08:38)
[2024-10-12] MEDS: Buprenorphine/Naloxone 8/2 mg FILM 1 FILM BUCCAL (08:38)
[2024-10-12] MEDS: ARIPiprazole 15 MG TABLET PO (08:38)
[2024-10-12] MEDS: guaiFENesin LA 600 MG TAB.ER.12H PO (08:42)
[2024-10-12] MEDS: Nicotine Polacrilex 2 MG GUM BUCCAL ×2 (08:43→10:05)
--- NOTE | 2024-10-12 09:00 | PC.NURSE ---
Patient refused morning labs, agreed to assessment, took morning medications
--- NOTE | 2024-10-12 10:22 | MHC.CM.PN ---
Patient lives at [facility]. She is independent with all functional mobility. Spoke with Madisyn @ [facility]. She stated that the patient is set to return. [facility] was booked for transportation home.
== END 2024-10-12 10:06 | disposition home or self-care (01) | DRG 141 ==
LOC: HO.ED 16:23 → HO.EDOVER 17:18 → HO.S3 18:13
PROVIDERS: Admitting Provider Nurse Practitioner Acute Care; Emergency Provider Emergency Medicine Emergency Medical Services; Visit Provider Nurse Practitioner Acute Care
DX: J45.901 Unspecified asthma with (acute) exacerbation (principal); J96.01 Acute respiratory failure with hypoxia; F11.20 Opioid dependence, uncomplicated; F41.9 Anxiety disorder, unspecified; F17.210 Nicotine dependence, cigarettes, uncomplicated; Z20.822 Contact with and (suspected) exposure to COVID-19; Z71.6 Tobacco abuse counseling; Z79.899 Other long term (current) drug therapy
CPT/HCPCS: 0241U; 36415; 71046; 71275; 80048; 80053; 80307; 81003; 82803; 83605; 84702; 85025; 85027; 87040; 94640; 99285; J0456; J0696; J2919; Q9967

== ENCOUNTER → 2024-10-11 13:02 | Outpatient (BNV) | payer OTHER, SELFPAY | PROVIDERS: Emergency Provider Emergency Medicine Emergency Medical Services; Visit Provider Radiology Diagnostic Radiology | DX: R06.02 Shortness of breath (principal); R09.02 Hypoxemia | CPT/HCPCS: 71275 ==

== ENCOUNTER → 2024-10-11 17:02 | Outpatient (BNV) | payer OTHER, SELFPAY | PROVIDERS: Admitting Provider Nurse Practitioner Acute Care; Emergency Provider Emergency Medicine Emergency Medical Services; Visit Provider Nurse Practitioner Acute Care | DX: J96.01 Acute respiratory failure with hypoxia (principal); J45.901 Unspecified asthma with (acute) exacerbation | CPT/HCPCS: 99239 ==

== ENCOUNTER 2024-10-20 14:32 | Emergency (ER) | payer OTHER, SELFPAY ==
[2024-10-20 14:49] VITALS: BP 135/83; PULSE 96; RESP 18; TEMP 36.6; O2SAT 96; BMI 29.6
--- NOTE | 2024-10-20 14:52 | ED_ITS ---
HPI - Psych General Chief Complaint: Psychiatric Symptoms Stated Complaint: SI Time Seen by Provider: 10/20/24 14:43 Source: patient, EMS, RN notes reviewed and old records reviewed Mode of arrival: EMS History of Present Illness ED Provider: Olivia Hodgson PA-C HPI Narrative: 29-year-old female with a past medical history anxiety, substance abuse, asthma, presenting to the ED via EMS from [facility] s/p being kicked out for having a Vape pen, & reporting SI statements without plan. Reports increasing stressors with family issues, and mother passing in March. Also states she has a ghost that is attached to her. States ghost has a male presence and is bothering her, and she is experiencing vivid dreams with dream paralysis & arben every other day in dreams. Denies active EtOH or illicit substance use. Denies auditory/visual hallucinations Related Data Home Medications ?Medication ?Instructions ?Recorded ?Confirmed acetaminophen 500 mg tablet 1,000 mg PO Q6H PRN Fever Or Pain 10/11/24 10/11/24 alprazolam 0.5 mg tablet 0.5 mg BEDTIME 10/11/24 10/11/24 alprazolam 1 mg tablet 1 mg DAILY PRN Anxiety 10/11/24 10/11/24 aripiprazole 15 mg DAILY 10/11/24 10/11/24 buprenorphine 8 mg-naloxone 2 mg 1 film buccal BID 10/11/24 10/11/24 sublingual film (Suboxone) calcium carbonate 1,000 - 2,000 mg PO DAILY PRN Acid 10/11/24 10/11/24 Reflux dextroamphetamine-amphetamine 20 20 mg BID 10/11/24 10/11/24 mg tablet escitalopram oxalate 10 mg tablet 10 mg PO DAILY 10/11/24 10/11/24 (Lexapro) gabapentin 800 mg tablet 800 mg PO TID 10/11/24 10/11/24 melatonin 5 mg tablet 10 mg PO BEDTIME Sleep 10/11/24 10/11/24 mirtazapine 45 mg tablet 45 mg PO BEDTIME 10/11/24 10/11/24 nicotine (polacrilex) 4 mg gum 4 mg buccal Q2H PRN Smoking 10/11/24 10/11/24 (Nicorette) Cessation nicotine 14 mg/24 hr daily 1 patch transdermal DAILY Smoking 10/11/24 10/11/24 transdermal patch Cessation Previous Rx's ?Medication ?Instructions ?Recorded albuterol sulfate 90 mcg/actuation 1 inh inhalation QID PRN shortness 10/12/24 aerosol inhaler of breath or wheezing #6.7 grams cefuroxime axetil 500 mg tablet 500 mg PO BID #8 tabs 10/12/24 doxycycline hyclate 100 mg tablet 100 mg PO BID #8 tabs 10/12/24 prednisone 10 mg tablet 40 mg (4 x 10 mg) PO DIRECTED 10/12/24 #16 tabs Allergies Allergy/AdvReac Type Severity Reaction Status Date / Time ibuprofen Allergy Unknown Verified 10/20/24 14:52 Penicillins Allergy Unknown Verified 10/20/24 14:52 Review of Systems 2 Review of Systems: Yes all other systems are reviewed and are negative Constitutional: Constitutional: Reports as per [facility] Past Medical History Attestation statement: The following information was validated with the patient. Source: old records reviewed Medical History Anxiety Substance abuse Asthma Social History Social History Household Members: Family Housing: House Patient Tobacco Use Status: Current everyday Tobacco user Cigarettes Per Day: 5 e-Cigarette/Vaping Use: Currently Using Advance Directives: No Do you have a plan to hurt others: No Plan service: No Physical Exam 2 Vital Signs: Vital Signs: Last Vital Signs Temp 97.8 F 10/20/24 14:49 Pulse 96 10/20/24 14:49 Resp 18 10/20/24 14:49 BP 135/83 10/20/24 14:49 Pulse Ox 96 10/20/24 14:49 O2 Del Method Room Air 10/20/24 14:49 BMI result Body Mass Index 29.6 Const: General: cooperative and no acute distress O rientation/consciousness: patient oriented x3 Limitations: no limitations HEENT: Head: Yes normal to inspection and Yes atraumatic Ears: hearing grossly normal bilaterally General nose exam: Normal external nose present Face and sinus: Yes normal facial exam Eyes: General: appearance normal, both eyes and all related structures EOM: EOMs intact bilaterally Neck: Neck: Yes normal visual inspection and Yes no meningeal signs Resp: Effort & Inspection: normal respiratory effort and no respiratory distress Cardio: Rate: regular rate GI: Inspection: Yes normal to inspection Palpation (GI): Soft to palpation, nontender, no guarding and not rigid Skin: Rashes: no rashes Wounds: no wounds Neuro: General: patient oriented x3, gait normal, tone normal, moves all extremities, no meningeal signs and CN's II-XI intact bilaterally Cranial nerves: Yes CN's II-XII intact bilaterally Gait exam (Neuro): Normal gait present Extrem: General: Yes normal to inspection Psych: Thought content: Suicidality present, no homicidality, Paranoid delusions present and Depressive thoughts present Course Course Course Narrative: -163--ED care transferred to ROB[facility] pending labs and CARE team consult Medical Decision Making Medical Decision Making MDM Narrative: 29-year-old female with a past medical history anxiety, substance abuse, asthma, presenting to the ED via EMS from [facility] s/p being kicked out for having a Vape pen, & reporting SI statements without plan. On exam vital signs stable, NAD, nontoxic appearing, suicidal/depressed. Delusions of ghost attached to her. Denies HI or illicit substance use. Rule out organic causes and metabolic abnormalities vs psychiatric illness. Plan: Labs, UA, tox screen, CARE team consult Please refer to course for remaining clinical decision making, interpretation of labs/imaging results, and discussions with consultants and/or family members. Differential Diagnosis Differential Diagnoses: The differential diagnosis associated with the presentation includes As above Admission/Observation Consideration of admission/observation: Escalation of care including admission/observation considered Consult Healthcare Provider Management of the patient was discussed with: Behavioral Health Provider Lab Data [facility] Lab Attestation statement: I reviewed the patient's lab results. 10/20/24 16:11 10/20/24 16:11 Radiology Impression Discussion of test interpretation with radiology: I have reviewed the radiologist's reading. External Record Review External record reviewed: Inpatient record, Office record, Outpatient record, Prior outpatient labs, Prior outpatient radiology, Primary care record and Outside ED record Tests considered The following testing was considered but not selected: As above Prescription Management I considered prescription management with: Other Chronic Conditions Patient?s care impacted by: Other Social Determinants Patient?s care significantly limited by Social Determinants of Health including: Inadequate housing, Low income, Alcoholism and drug addiction in family, Problems related to primary support group, Unemployment, Problems related to employment and Other Social Determinant of Health Discharge Plan Discharge Clinical Impression: Suicidal ideation Patient Disposition: Still a Patient Prescriptions: No Action dextroamphetamine-amphetamine 20 mg Tablet 20 mg BID buprenorphine-naloxone [Suboxone] 8-2 mg Film 1 film BUCCAL BID gabapentin 800 mg Tablet 800 mg PO TID alprazolam 1 mg Tablet 1 mg DAILY PRN (Reason: Anxiety) alprazolam 0.5 mg Tablet 0.5 mg BEDTIME aripiprazole 15 mg tablet 15 mg DAILY nicotine 14 mg/24 hr Patch 24 Hour 1 patch TRANSDERMAL DAILY acetaminophen 500 mg Tablet 1,000 mg PO Q6H MDD 6 tabs /24h PRN (Reason: Fever Or Pain) nicotine (polacrilex) [Nicorette] 4 mg Gum 4 mg BUCCAL Q2H PRN (Reason: Smoking Cessation) mirtazapine 45 mg Tablet 45 mg PO BEDTIME calcium carbonate 500 mg calcium (1,250 mg) Tablet,Chewable 1,000 - 2,000 mg PO DAILY PRN (Reason: Acid Reflux) escitalopram oxalate [Lexapro] 10 mg Tablet 10 mg PO DAILY melatonin 5 mg Tablet 10 mg PO BEDTIME prednisone 10 mg tablet 40 mg PO DIRECTED Qty: 16 0RF Rx Instructions: see taper instructions cefuroxime axetil 500 mg tablet 500 mg PO BID Qty: 8 0RF doxycycline hyclate 100 mg tablet 100 mg PO BID Qty: 8 0RF albuterol sulfate 90 mcg/actuation HFA aerosol inhaler 1 inh inhalation QID PRN (Reason: shortness of breath or wheezing) Qty: 6.7 0RF Print Language: Belarusian
--- NOTE | 2024-10-20 15:35 | MHC.CARE ---
Pt stated that she is coming from the [facility] in [place]. She stated she was endorsing SI to staff yesterday secondary to [place] being a difficult day for her, and her mother passing away. Pt reported staff refused to bring me here. She then stated they found a nicotine vape on her person today and told me to pack my bags. She was then dropped off at the ED. Pt stated she wanted to admit to a CSS from the ED however knows that is not possible. She is requesting admission to a dual program for ongoing mental health/substance use treatment. T/W informed her she would be assessed by the CARE team to decide what level of care she meets.
[2024-10-20 16:20] LABS: MANUAL DIFF FLAG NO
[2024-10-20 16:27] LABS: Basophils Percent Auto 0.2 % (0-2); Eosinophils Absolute Auto 0.5 X10*3/uL (0.0-0.4); Eosinophils Percent Auto 3.8 % (0-4); Hematocrit 40.4 % (37.0-47.0); Hemoglobin 12.9 g/dl (12.0-16.0); Imm Gran Pct Auto 0.8 % (0.0-0.4); Lymphocytes Absolute Auto 4.4 X10*3/uL (1.2-4.9); Lymphocytes Percent Auto 35.6 % (20-40); Mean Corpuscular HGB Conc 31.9 g/dl (31.0-35.0); Mean Corpuscular Hemoglobin 28.9 pg (27.0-33.0); Mean Corpuscular Volume 90.6 fL (80.0-98.0); Mean Platelet Volume 8.9 fL (9.4-12.3); Monocytes Absolute Auto 0.7 X10*3/uL (0.1-1.2); Monocytes Percent Auto 5.4 % (2-11); Neutrophils Absolute Auto 6.7 x10*3/uL (2.0-8.3); Neutrophils Percent Auto 54.2 % (45-73); Platelet Count 361 X10*3/uL (160-400); Red Blood Count 4.46 X10*6/uL (4.20-5.50); Red Cell Distribution Width 12.1 % (11.0-16.0); White Blood Count 12.4 X10*3/uL (4.8-10.8)
[2024-10-20 16:33] LABS: Amphetamine Screen Urine POSITIVE (Not Detect); Barbiturates, Urine Not Detected (Not Detect); Benzodiazepines Screen Urine POSITIVE (Not Detect); Buprenorphine Scr Positive (Not Detect); Cannabinoid Screen Urine Not Detected (Not Detect); Cocaine Screen Urine Not Detected (Not Detect); Fentanyl, urine Not Detected (Not Detect); Methadone Screen, Urine Not Detected (Not Detect); Opiate Screen Urine Not Detected (Not Detect); Oxycodone Screen Urine Not Detected (Not Detect); Phencyclidine Screen Urine Not Detected (Not Detect)
[2024-10-20 16:39] LABS: Acetaminophen LAB < 3 mcg/mL (<30); Salicylate < 5.0 mg/dL (15-30)
[2024-10-20 16:46] LABS: Alanine Aminotransferase 22 U/L (0-31); Albumin Level 4.2 g/dL (3.5-5.0); Alkaline Phosphatase 55 U/L (39-117); Anion Gap 9 (12-20); Aspartate Amino Transferase 19 U/L (5-31); Bilirubin Total 0.1 mg/dL (0.0-1.0); Blood Urea Nitrogen 8 mg/dL (9-16); Carbon Dioxide 30 mmol/L (22-29); Chloride 104 mmol/L (96-108); Creatinine Clr Calc Pharmacy 127.4; Estimated Glomerular Filt Rate > 60; Ethanol < 10 mg/dL; Glucose Random 109 mg/dL (60-115); Potassium 3.6 mmol/L (3.3-5.1); Sodium 139 mmol/L (135-145); Total Protein 7.5 g/dL (6.5-8.0)
[2024-10-20 16:55] LABS: UPreg QC Valid YES; Urine Pregnancy NEGATIVE (NEGATIVE)
[2024-10-20] MEDS: Nicotine Polacrilex 2 MG GUM 4 MG BUCCAL ×2 (18:56→21:00)
[2024-10-20] MEDS: Buprenorphine/Naloxone 8/2 mg FILM 1 FILM BUCCAL (20:23)
[2024-10-20] MEDS: Gabapentin 400 MG CAPSULE 800 MG PO (20:24)
[2024-10-20] MEDS: Amphetamine Mixed Salts 20 MG TABLET PO (20:24)
[2024-10-20] MEDS: Melatonin 3 MG TABLET 9 MG PO (20:24)
[2024-10-20] MEDS: Mirtazapine 15 MG TABLET 45 MG PO (20:24)
[2024-10-20] MEDS: ALPRAZolam 0.5 MG TABLET PO (20:24)
[2024-10-21] MEDS: Nicotine Polacrilex 2 MG GUM 4 MG BUCCAL ×7 (01:34→18:13)
[2024-10-21] MEDS: Gabapentin 400 MG CAPSULE 800 MG PO ×2 (08:10→13:52)
[2024-10-21] MEDS: Amphetamine Mixed Salts 20 MG TABLET PO ×2 (08:10→13:04)
[2024-10-21] MEDS: Buprenorphine/Naloxone 8/2 mg FILM 1 FILM BUCCAL (08:10)
[2024-10-21 08:29] VITALS: BP 114/72; PULSE 110; RESP 14; TEMP 36.6; O2SAT 99
--- NOTE | 2024-10-21 08:31 | PC.NURSE ---
called pharmacy for missing medication
[2024-10-21] MEDS: ARIPiprazole 15 MG TABLET PO (09:01)
[2024-10-21] MEDS: ALPRAZolam 0.5 MG TABLET 1 MG PO ×2 (09:51→15:22)
--- NOTE | 2024-10-21 10:17 | PC.NURSE ---
patient tearful over comments BH1 was making to her, this nurse spoke with the patient about keeping distance and not interacting or showing reaction to the patient that was yelling the comments to her, pt is wanting to discharge and keeps stating I dont feel safe. Armond from care team is now speaking to the patient.
--- NOTE | 2024-10-21 12:32 | MHC.CARE ---
Pt was accepted to [facility] for today. ETA is 4pm and the accepting provider is Dr. Steele. The address is [address] [place] [address]. No nurse to nurse is required by the accepting facility. Pod RN and CARE team have been notified of placement.
[2024-10-21 14:00] VITALS: RESP 20
--- NOTE | 2024-10-21 14:58 | PHA.MEDREC ---
Pharmacy Consult ? Medication Reconciliation Pharmacy has reviewed the medication reconciliation done by nursing. Patient confirmed she is not taking escitalopram 10 mg.
[2024-10-21 18:38] VITALS: PULSE 100; TEMP 36.1; O2SAT 97
--- NOTE | 2024-10-21 18:39 | PC.NURSE ---
pt refusing full set of vitals
[2024-10-21 18:53] VITALS: BP 0/0; PULSE 100; RESP 18; TEMP 36.1; O2SAT 97
== END 2024-10-21 18:55 ==
PROVIDERS: Physician Assistant; Emergency Provider Emergency Medicine
DX: R45.851 Suicidal ideations (principal); F41.9 Anxiety disorder, unspecified; F19.10 Other psychoactive substance abuse, uncomplicated; J45.909 Unspecified asthma, uncomplicated; F17.210 Nicotine dependence, cigarettes, uncomplicated; F11.20 Opioid dependence, uncomplicated; Z79.899 Other long term (current) drug therapy
CPT/HCPCS: 36415; 80053; 80143; 80179; 80307; 81025; 85025; 99285; S9485